=== PATIENT | male | born 1990 | race Two or more races ===

== ENCOUNTER 2022-08-20 11:00 | Emergency (ER) | payer OTHER ==
[2022-08-20 11:08] VITALS: TEMP 98.4; BMI 34.9
[2022-08-20 12:19] VITALS: BP 124/62; PULSE 73; RESP 13
[2022-08-20 13:33] LABS: BASO % 0.4 % (0-2.0); EOS % 0.6 % (0-4.5); HEMATOCRIT 49.7 % (35.4-49); HEMOGLOBIN 16.4 GM/dL (11.7-16.9); LYMPH % 29.3 % (8-40); MCHC 32.9 g/dl (32.0-35.9); MEAN PLT VOLUME 9.1 fl (7.5-11.1); MONO % 11.1 % (3.8-10.2); NEUT % 58.6 % (42.8-82.8); PLATELET COUNT 318 10^3/uL (134-434); RBC 5.46 M/mm3 (4.00-5.60); RDW 13.1 % (11.9-15.9); WHITE BLOOD COUNT 4.9 K/mm3 (4.0-10.0)
[2022-08-20 13:56] LABS: POTASSIUM 4.2 mmol/L (3.5-5.1)
[2022-08-20 13:58] LABS: BLOOD UREA NITROGEN 12.4 mg/dL (7-18); CALCIUM 9.6 mg/dL (8.5-10.1)
[2022-08-20 13:59] LABS: ALBUMIN 3.9 g/dl (3.4-5.0); MAGNESIUM 2.2 mg/dL (1.8-2.4)
[2022-08-20 14:02] LABS: CREATININE 0.9 mg/dL (0.55-1.3)
[2022-08-20 14:03] LABS: BILIRUBIN,TOTAL 0.5 mg/dL (0.2-1); TOT PROT 7.5 g/dl (6.4-8.2)
== END 2022-08-20 15:08 | disposition home or self-care (01) ==
LOC: JER 11:00
DX: R00.2 Palpitations (principal); R07.9 Chest pain, unspecified; R42 Dizziness and giddiness
CPT/HCPCS: 36415; 71045-TC-FY; 80053; 83735; 84439; 84443; 84484; 85025; 93005; 93010; 99285-25